=== PATIENT | male | born 1990 | race Two or more races ===

== ENCOUNTER 2016-10-17 13:25 | Emergency (ER) | payer SELFPAY ==
[~2016-10-17] VITALS: Ht 182.9 cm; Wt 95.3 kg
[2016-10-17] MEDS ORDERED: Morphine Sulfate 2mg/ml Inj IVP ONE (13:30)
[2016-10-17] MEDS ORDERED: Metoclopramide 10mg/2ml Inj IVP ONE (13:30)
[2016-10-17 13:33] VITALS: BP 150/100
[2016-10-17 13:52] LABS: BASOPHILS % (AUTO) 0.9 % (0.0-2.0); EOSINOPHILS % (AUTO) 0.4 % (0.0-3.0); LYMPHOCYTES % (AUTO) 23.6 % (20.0-45.0); MEAN CORPUSCULAR HEMOGLOBIN 27.9 PG (27.0-31.0); MEAN CORPUSCULAR HGB CONC 32.8 G/DL (32.0-36.0); MEAN CORPUSCULAR VOLUME 85 FL (80-99); MEAN PLATELET VOLUME 9.5 FL (6.5-10.1); MONOCYTES % (AUTO) 6.6 % (1.0-10.0); NEUTROPHILS % (AUTO) 68.4 % (45.0-75.0); PLATELET COUNT 362 K/UL (150-450); RED BLOOD COUNT 5.61 M/UL (4.70-6.10); RED CELL DISTRIBUTION WIDTH 11.7 % (11.6-14.8); WHITE BLOOD COUNT 13.4 K/UL (4.8-10.8)
--- NOTE | 2016-10-17 14:01 | Emergency Room Report ---
History of Present Illness General Chief Complaint: Nausea, Vomiting, and Diarrhea Source: Patient Present Illness HPI Patient presents with complaints of increased nausea vomiting Patient also having diffuse epigastric discomfort Reports symptoms ongoing for the past 2 days Denies any chest pain or shortness of breath Denies any diarrhea patient does admit to smoking marijuana Denies any other drugs Allergies: Coded Allergies: No Known Allergies (Unverified , 10/17/16) Patient History Past Medical History: see triage record Pertinent Family History: none Reviewed Nursing Documentation: PMH: Agreed, PSxH: Agreed Nursing Documentation-PMH Past Medical History: No Stated History Review of Systems All Other Systems: negative except mentioned in HPI Physical Exam Vital Signs Date Time Temp Pulse Resp B/P Pulse Ox O2 Delivery O2 Flow Rate FiO2 10/17/16 13:19 98.1 98 16 150/100 98 Room Air Sp02 EP Interpretation: reviewed, normal General Appearance: mild distress - Appears actively nauseated Head: normocephalic, atraumatic Eyes: bilateral eye EOMI, bilateral eye PERRL ENT: hearing grossly normal, normal pharynx, TMs + canals normal, uvula midline Neck: full range of motion, supple, no meningismus, no bony tend Respiratory: lungs clear, normal breath sounds, no rhonchi, no respiratory distress, no retraction, no accessory muscle use Cardiovascular #1: normal peripheral pulses, regular rate, rhythm, no edema, no gallop, no JVD, no murmur Gastrointestinal: normal bowel sounds, non tender, soft, no mass, no organomegaly, non-distended, no guarding, no hernia, no pulsatile mass, no rebound Genitourinary: no CVA tenderness Musculoskeletal: normal inspection Neurologic: oriented x3, responsive, cabinet installer III-XII nml as tested, motor strength/ tone normal, sensory intact Psychiatric: mood/affect normal Skin: normal color, no rash, warm/dry, palpation normal Lymphatic: normal inspection, no adenopathy Medical Decision Making Diagnostic Impression: Primary Impression: Abdominal pain Additional Impression: Vomiting ER Course With the history exam and presentation, multiple differentials considered, including but not limited to appendicitis, gastritis, cholecystitis, diverticulitis Patient's blood work reveals a mildly elevated white blood cell count CT imaging was normal after prolonged observation and hydration along with antiemetics patient does feel significantly better Given the lack of any obvious findings on the CAT scan imaging The patient's improvement we will have initial conservative outpatient trial I also spoke to the patient's brother and they will return with any changes Labs Test 10/17/16 13:30 10/17/16 15:09 White Blood Count 13.4 K/UL (4.8-10.8) Red Blood Count 5.61 M/UL (4.70-6.10) Hemoglobin 15.6 G/DL (14.2-18.0) Hematocrit 47.7 % (42.0-52.0) Mean Corpuscular Volume 85 FL (80-99) Mean Corpuscular Hemoglobin 27.9 PG (27.0-31.0) Mean Corpuscular Hemoglobin Concent 32.8 G/DL (32.0-36.0) Red Cell Distribution Width 11.7 % (11.6-14.8) Platelet Count 362 K/UL (150-450) Mean Platelet Volume 9.5 FL (6.5-10.1) Neutrophils (%) (Auto) 68.4 % (45.0-75.0) Lymphocytes (%) (Auto) 23.6 % (20.0-45.0) Monocytes (%) (Auto) 6.6 % (1.0-10.0) Eosinophils (%) (Auto) 0.4 % (0.0-3.0) Basophils (%) (Auto) 0.9 % (0.0-2.0) Sodium Level 138 mEQ/L (135-145) Potassium Level 3.3 mEQ/L (3.4-4.9) Chloride Level 92 mEQ/L (98-107) Carbon Dioxide Level 19 mEQ/L (20-30) Anion Gap 27 (5-15) Blood Urea Nitrogen 21 mg/dL (7-23) Creatinine 1.2 mg/dL (0.7-1.2) Estimat Glomerular Filtration Rate > 60 mL/min (>60) Glucose Level 131 mg/dL (74-106) Calcium Level 10.0 mg/dL (8.6-10.2) Total Bilirubin 0.8 mg/dL (0.0-1.2) Aspartate Amino Transf (AST/SGOT) 42 U/L (5-40) Alanine Aminotransferase (ALT/SGPT) 71 U/L (3-41) Alkaline Phosphatase 97 U/L (40-129) Total Protein 8.6 g/dL (6.6-8.7) Albumin 5.2 g/dL (3.5-5.2) Globulin 3.4 g/dL Albumin/Globulin Ratio 1.5 (1.0-2.7) Lipase 20 U/L (< 60) Urine Color Pale yellow Urine Appearance Clear Urine pH 6.5 (4.5-8.0) Urine Specific [place] 1.010 (1.005-1.035) Urine Protein 1+ (NEGATIVE) Urine Glucose (UA) Negative (NEGATIVE) Urine Ketones 1+ (NEGATIVE) Urine Occult Blood 2+ (NEGATIVE) Urine Nitrite Negative (NEGATIVE) Urine Bilirubin Negative (NEGATIVE) Urine Urobilinogen Normal MG/DL (0.0-1.0) Urine Leukocyte Esterase 1+ (NEGATIVE) Urine RBC 5-10 /HPF (0 - 0) Urine WBC 2-4 /HPF (0 - 0) Urine Squamous Epithelial Cells None /LPF (NONE/OCC) Urine Bacteria Few /HPF (NONE) Urine Opiates Screen Positive (NEGATIVE) Urine Barbiturates Screen Negative (NEGATIVE) Phencyclidine (PCP) Screen Negative (NEGATIVE) Urine Amphetamines Screen Negative (NEGATIVE) Urine Benzodiazepines Screen Negative (NEGATIVE) Urine Cocaine Screen Negative (NEGATIVE) Urine Marijuana (THC) Screen Positive (NEGATIVE) Rhythm Strip Diag. Results EP Interpretation: yes Rate: 77 Rhythm: NSR, no PVC's, no ectopy CT/MRI/US Diagnostic Results CT/MRI/US Diagnostic Results : Impression CT abdomen pelvisImpression: Mild fatty liver. Small hiatal hernia Calcification of the right adrenal gland. This may be posthemorrhagic or postinflammatory. Normal appendix Malrotated left kidney Hypoplastic spinal canal. If warranted clinically further evaluation with MRI may be of benefit on a non-urgent basis Last Vital Signs Date Time Temp Pulse Resp B/P Pulse Ox O2 Delivery O2 Flow Rate FiO2 10/17/16 13:33 16 150/100 98 Room Air 10/17/16 13:19 98.1 98 Status: improved Disposition: HOME, SELF-CARE Condition: Improved Scripts Famotidine (PEPCID) 40 Mg Tablet 40 MG PO DAILY, #7 TAB 0 Refills Prov: BRANDIE HENDRICKS D.O. 10/17/16 Ondansetron Odt* (ZOFRAN ODT*) 4 Mg Tab.rapdis 4 MG ORAL Q6H Y for Nausea & Vomiting, #20 TAB 0 Refills Prov: BRANDIE HENDRICKS D.O. 10/17/16 Additional Instructions: Patient is provided with the discharge instructions notified to follow up with primary doctor in the next 2-3 days otherwise return to the er with any worsening symptoms. Please note that this report is being documented using DRAGON technology. This can lead to erroneous entry secondary to incorrect interpretation by the dictating instrument. BRANDIE HENDRICKS D.O. Oct 17, 2016 14:01
[2016-10-17 14:05] LABS: ALANINE AMINOTRANSFERASE 71 U/L (3-41); ALBUMIN/GLOBULIN RATIO 1.5 (1.0-2.7); ANION GAP 27 (5-15); ASPARTATE AMINO TRANSFERASE 42 U/L (5-40); CARBON DIOXIDE 19 mEQ/L (20-30); CHLORIDE 92 mEQ/L (98-107); CREATININE 1.2 mg/dL (0.7-1.2); GLOMERULAR FILTRATION RATE > 60 mL/min (>60); HEMOLYSIS 8; LIPASE 20 U/L (< 60); POTASSIUM 3.3 mEQ/L (3.4-4.9); SODIUM 138 mEQ/L (135-145); TOTAL PROTEIN 8.6 g/dL (6.6-8.7)
[2016-10-17] MEDS ORDERED: LORazepam Inj 2mg/ml 1ml IV ONE (14:15)
[2016-10-17 15:28] VITALS: BP 150/98
[2016-10-17 16:05] LABS: APPEARANCE,URINE CLEAR; KETONES,URINE 1+ (NEGATIVE); LEUKOCYTE ESTERASE ,URINE 1+ (NEGATIVE); NITRITE,URINE NEGATIVE (NEGATIVE); PH,URINE 6.5 (4.5-8.0); PROTEIN,URINE 1+ (NEGATIVE); UROBILINOGEN,URINE NORMAL MG/DL (0.0-1.0)
[2016-10-17 16:21] LABS: BACTERIA,URINE FEW /HPF
[2016-10-17 17:45] VITALS: BP 136/75
[2016-10-17] MEDS ORDERED: ZOFRAN ODT4 MG ORAL (17:48)
[2016-10-17] MEDS ORDERED: PEPCID40 MG PO (17:48)
[2016-10-17 18:13] VITALS: BP 136/75
--- NOTE | 2016-10-18 08:26 | Diagnostic Imaging Report ---
Indication: Abdominal pain Technique: Continuous helical transaxial imaging of the abdomen and pelvis was obtained from the lung bases to the pubic symphysis during intravenous contrast administration. Coronal 2-D reformats were also obtained. Study obtained in a Siemens sensation [address] Total Dose length Product (DLP): [address] Dose Index Volume (CTDIvol): 19 mGy Comparison: None Findings: Liver attenuation is low consistent with fatty infiltration. There is a small hiatal hernia. The gallbladder is unremarkable. The spleen and pancreas are unremarkable. There is fairly dense calcification of a portion of the right adrenal gland, nonspecific finding. The appendix is normal. There is no hydronephrosis. Urinary bladder is unremarkable. No free fluid or free air identified within the abdomen or pelvis. Left kidney is slightly malrotated. 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 Impression: Mild fatty liver. Small hiatal hernia Calcification of the right adrenal gland. This may be posthemorrhagic or postinflammatory. Normal appendix Malrotated left kidney Hypoplastic spinal canal. If warranted clinically further evaluation with MRI may be of benefit on a non-urgent basis. The CT scanner at [facility] is accredited by the [employer] and the scans are performed using protocols designed to limit radiation exposure to as low as reasonably achievable to attain images of sufficient resolution adequate for diagnostic evaluation.
--- NOTE | 2016-10-22 08:32 | Cardiology Report ---
APPROVED REPORT EKG Measurement Heart [id number] NE [id number] Sinus rhythm with marked sinus arrhythmia Possible Left atrial enlargement Abnormal ECG
== END 2016-10-17 18:14 | disposition home or self-care (01) ==
LOC: EDBD 13:25 → EMR 17:00
DX: R11.10 Vomiting, unspecified (principal); R10.9 Unspecified abdominal pain
CPT/HCPCS: 36415; 74177; 80053; 80300; 81003; 83690; 85025; 93005; 96374; 96375; 99284; J2270; J2405; J2765; Q9967

== ENCOUNTER 2020-01-01 09:13 | Inpatient (IN) | payer MEDICAID ==
[~2020-01-01] VITALS: Ht 175.3 cm; Wt 123.4 kg
[~2020-01-01 09:13] MED LIST: PEPCID40 MG PO; ZOFRAN ODT4 MG ORAL
[2020-01-01 09:14] VITALS: BP 170/82
--- NOTE | 2020-01-01 09:14 | NUR ---
ED Nurse Note: Patient BIBLaisha RA68 from home c/o nausea/ vomiting x4 days. Pt also reports abdominal pain. Pt is retching and noted with undigested food emesis. AAOx4, verbally responsive. Not in any distress. Afebrile. Pt placed on sales and marketing representative.
[2020-01-01] MEDS ORDERED: DiphenhydrAMINE 50mg/ml Inj IVP ONE (09:15)
[2020-01-01] MEDS ORDERED: Metoclopramide 10mg/2ml Inj IVP ONE (09:15)
[2020-01-01] MEDS ORDERED: LORazepam Inj 2mg/ml 1ml IV ONE (09:15)
--- NOTE | 2020-01-01 09:20 | NUR ---
ED Nurse Note: IV line established. Blood specimen collected and sent to lab.
[2020-01-01 09:38] LABS: BASOPHILS % (AUTO) 0.8 % (0.0-2.0); EOSINOPHILS % (AUTO) 0.1 % (0.0-3.0); HEMATOCRIT 42.8 % (42.0-52.0); LYMPHOCYTES % (AUTO) 12.5 % (20.0-45.0); MEAN CORPUSCULAR VOLUME 80 FL (80-99); MONOCYTES % (AUTO) 5.3 % (1.0-10.0); NEUTROPHILS % (AUTO) 81.3 % (45.0-75.0); PLATELET COUNT 385 K/UL (150-450); RED BLOOD COUNT 5.34 M/UL (4.70-6.10); RED CELL DISTRIBUTION WIDTH 10.8 % (11.6-14.8); WHITE BLOOD COUNT 16.9 K/UL (4.8-10.8)
[2020-01-01 09:45] LABS: ANION GAP 18 mmol/L (5-15); BLOOD UREA NITROGEN 17 mg/dL (7-18); CALCIUM 9.3 MG/DL (8.5-10.1); CARBON DIOXIDE 19 MMOL/L (21-32); CHLORIDE 99 MMOL/L (98-107); CREATININE 1.5 MG/DL (0.55-1.30); SODIUM 136 MMOL/L (136-145)
[2020-01-01 09:49] LABS: ALANINE AMINOTRANSFERASE 191 U/L (12-78); ALBUMIN 4.6 G/DL (3.4-5.0); ALBUMIN/GLOBULIN RATIO 1.2 (1.0-2.7); ALKALINE PHOSPHATASE 85 U/L (46-116); ASPARTATE AMINO TRANSFERASE 82 U/L (15-37)
[2020-01-01 11:00] VITALS: BP 135/82
--- NOTE | 2020-01-01 11:36 | NUR ---
ED Nurse Note: Pt was taken to CT via misa, accompanied by a tech.
--- NOTE | 2020-01-01 11:48 | NUR ---
ED Nurse Note: Pt returned from CT, not in any distress.
--- NOTE | 2020-01-01 12:17 | Diagnostic Imaging Report ---
Indication: Nausea, vomiting, abdominal pain Technique: Spiral acquisitions obtained through the abdomen and pelvis. No oral contrast utilized, per emergency room physician request No IV contrast utilized, per referring physician request.. Multiplanar reconstructions were generated. Total dose length product 1027 mGycm. CTDIvol(s) 16 mGy. Dose reduction achieved using automated exposure control Comparison: None Findings: Lack of enteric contrast limits assessment of the GI tract. The appendix is normal. No small bowel distention. No free or loculated intraperitoneal gas or fluid. There is a small umbilical hernia. This contains only fat. The distal esophagus demonstrates mild wall thickening. The stomach is normal. The duodenum is unremarkable. Lack of IV contrast limits assessment of the solid organs. The liver is mildly hypoattenuating, consistent with mild fatty change. The gallbladder, bile ducts, pancreas, spleen, left adrenal are unremarkable. The right adrenal contains calcifications which appear dystrophic. There is slightly abnormal axis rotation of the left kidney. No gross renal parenchymal mass or cyst demonstrated. No renal or ureteral calculi, hydronephrosis, or hydroureter. The bladder is unremarkable. No pelvic mass or adenopathy. No retroperitoneal or mesenteric mass or adenopathy. There is incidental note of a retroaortic left renal vein. The included lung bases are clear. The bones are unremarkable. Impression: Limited assessment of the GI tract, due to lack of enteric contrast administration Mild distal esophageal wall thickening, could indicate esophagitis. Correlate with clinical finding No acute process otherwise Mild fatty liver Dystrophic right adrenal calcification, could indicate prior insult such as hemorrhage. Incidental findings as noted, including small umbilical hernia containing only fat, retroaortic left renal vein The CT scanner at [facility] is accredited by the [employer] and the scans are performed using protocols designed to limit radiation exposure to as low as reasonably achievable to attain images of sufficient resolution adequate for diagnostic evaluation.
[2020-01-01 13:00] VITALS: BP 125/68
[2020-01-01] MEDS ORDERED: Mylanta II UD 30ml ORAL ONE (13:00)
--- NOTE | 2020-01-01 13:10 | NUR ---
ED Nurse Note: Urine specimen collected and sent to lab.
--- NOTE | 2020-01-01 14:04 | Emergency Room Report ---
History of Present Illness General Chief Complaint: Nausea, Vomiting, and Diarrhea Source: Patient Present Illness HPI Patient presents with complaints of persistent nausea vomiting reports that he has been to several hospitals over the past 7 days this morning again began having increased nausea vomiting epigastric discomfort Denies any chest pain denies any back or flank pain patient reports that he has not used marijuana for the past 7 to 10 days As he was told that this might be contributing to his symptoms Denies any fevers denies any lower abdominal pain denies any recent travel patient had some similar presentation about 2 years ago Allergies: Coded Allergies: No Known Allergies (Unverified , 10/17/16) COVID-19 Screening Contact w/high risk pt: No Recent Travel to affected area: No Experienced COVID-19 symptoms?: No COVID-19 Testing performed CUE WORKER: No Patient History Past Medical History: see triage record Reviewed Nursing Documentation: PMH: Agreed; PSxH: Agreed Nursing Documentation-PM Past Medical History: No Stated History Review of Systems All Other Systems: negative except mentioned in HPI Physical Exam Vital Signs Date Time Temp Pulse Resp B/P (MAP) Pulse Ox O2 Delivery O2 Flow Rate FiO2 01/01/20 09:10 98.2 84 16 170/82 (111) 100 Room Air Sp02 EP Interpretation: reviewed, normal General Appearance: moderate distress - Aggressively actively vomiting Head: normocephalic, atraumatic Eyes: bilateral eye PERRL, bilateral eye EOMI ENT: hearing grossly normal, EOM grossly intact Neck: supple Respiratory: lungs clear, no respiratory distress, no retraction Cardiovascular #1: regular rate, rhythm Gastrointestinal: non tender - On palpation however points to epigastric and mid esophageal area for discomfort, no guarding, no hernia Genitourinary: no CVA tenderness Musculoskeletal: normal inspection Neurologic: alert, oriented x3 Psychiatric: normal inspection Lymphatic: no adenopathy Medical Decision Making Diagnostic Impression: Primary Impression: Vomiting Additional Impression: Abdominal pain ER Course With the history exam and presentation, multiple differentials considered, including but not limited to appendicitis, gastritis, cholecystitis, diverticulitis Patient had aggressive IV hydration antiemetics initiated on repeat evaluation continues with discomfort and therefore CT imaging was obtained Some evidence of esophageal irritation otherwise nothing in the lower abdominal region That was acute Patient however remained persistently nauseated And vomiting and not able to tolerate oral intake and will require further inpatient care Labs Test 01/01/20 09:21 01/01/20 12:56 White Blood Count 16.9 K/UL (4.8-10.8) Red Blood Count 5.34 M/UL (4.70-6.10) Hemoglobin 15.0 G/DL (14.2-18.0) Hematocrit 42.8 % (42.0-52.0) Mean Corpuscular Volume 80 FL (80-99) Mean Corpuscular Hemoglobin 28.1 PG (27.0-31.0) Mean Corpuscular Hemoglobin Concent 35.1 G/DL (32.0-36.0) Red Cell Distribution Width 10.8 % (11.6-14.8) Platelet Count 385 K/UL (150-450) Mean Platelet Volume 7.3 FL (6.5-10.1) Neutrophils (%) (Auto) 81.3 % (45.0-75.0) Lymphocytes (%) (Auto) 12.5 % (20.0-45.0) Monocytes (%) (Auto) 5.3 % (1.0-10.0) Eosinophils (%) (Auto) 0.1 % (0.0-3.0) Basophils (%) (Auto) 0.8 % (0.0-2.0) Sodium Level 136 MMOL/L (136-145) Potassium Level 3.0 MMOL/L (3.5-5.1) Chloride Level 99 MMOL/L (98-107) Carbon Dioxide Level 19 MMOL/L (21-32) Anion Gap 18 mmol/L (5-15) Blood Urea Nitrogen 17 mg/dL (7-18) Creatinine 1.5 MG/DL (0.55-1.30) Estimat Glomerular Filtration Rate 56.1 mL/min (>60) Glucose Level 128 MG/DL (74-106) Calcium Level 9.3 MG/DL (8.5-10.1) Total Bilirubin 1.0 MG/DL (0.2-1.0) Aspartate Amino Transf (AST/SGOT) 82 U/L (15-37) Alanine Aminotransferase (ALT/SGPT) 191 U/L (12-78) Alkaline Phosphatase 85 U/L (46-116) Total Protein 8.3 G/DL (6.4-8.2) Albumin 4.6 G/DL (3.4-5.0) Globulin 3.7 g/dL Albumin/Globulin Ratio 1.2 (1.0-2.7) Lipase 106 U/L (73-393) CT/MRI/US Diagnostic Results CT/MRI/US Diagnostic Results : Impression CT abdomen pelvisImpression: Limited assessment of the GI tract, due to lack of enteric contrast administration Mild distal esophageal wall thickening, could indicate esophagitis. Correlate with clinical finding No acute process otherwise Mild fatty liver Dystrophic right adrenal calcification, could indicate prior insult such as hemorrhage. Incidental findings as noted, including small umbilical hernia containing only fat, retroaortic left renal vein Last Vital Signs Date Time Temp Pulse Resp B/P (MAP) Pulse Ox O2 Delivery O2 Flow Rate FiO2 01/01/20 11:00 98.2 85 23 135/82 97 Room Air Status: improved Disposition: ADMITTED INPATIENT Condition: Serious Scripts No Active Prescriptions or Reported Meds Referrals: NOT CHOSEN IPA/,REFERRING (PCP) Kal Smiht DO Jan 01, 2020 14:03
[2020-01-01 15:00] VITALS: BP 118/71
--- NOTE | 2020-01-01 15:57 | NUR ---
ED Nurse Note: Report given to Elina PRICE.
--- NOTE | 2020-01-01 16:05 | NUR ---
TRANSFER TO FLOOR: Patient transferred to [facility] [place]. Report given to Elina PRICE. Pt AAOx4, verbally responsive. Not in any distress. Ambulatory. IV line on right AC 20g patent and intact. No skin issues. Med recon done. All belongings sent with the patient.
--- NOTE | 2020-01-01 16:20 | NUR ---
nurse notes received patient from ED via wheelchair patient awake, alert, oriented x4, no sign of distress, HL patent on right AC, c/o abdominal pain, but denies nausea and vomiting, Admission routine care ,oriented to the unit, plan of care was discharge verbalized understanding, call light w/n reach, will continue to monitor patient condition portillo fitzpatrick
[2020-01-01 16:44] VITALS: BP 130/73
[2020-01-01] MEDS: Pantoprazole Inj IVP SCH (18:16)
[2020-01-01] MEDS: NS w/KCl 20mEq 1000ml 1,000 ML IV SCH (18:18)
--- NOTE | 2020-01-01 19:20 | NUR ---
NURSE NOTES: Received patient on bed, awake and verbally responsive. room air. no sob. denies any pain or discomfort. with iv line on the right ac running ns + kcl 20 meq at 150ml/hr. patent and intact. no complaints of nausea and vomiting at the moment. reiterated to call and ask for help by using the call light. call light and light button within easy reach. bed locked and in lowest position. will continue plan of care.
--- NOTE | 2020-01-01 19:29 | NUR ---
HAND-OFF: Report given to Ms Harper patient resting comfortably in bed, portillo fitzpatrick.
[2020-01-01 20:00] VITALS: BP 125/75
[2020-01-02] VITALS: BP 134/78
[2020-01-02] MEDS: NS w/KCl 20mEq 1000ml 1,000 ML IV SCH ×4 (00:40→22:00)
--- NOTE | 2020-01-02 02:30 | History and Physical Report ---
DATE OF ADMISSION: 01/01/2020 REASON FOR ADMISSION: Refractory vomiting. HISTORY OF PRESENT ILLNESS: This is a 29-year-old male with no significant prior medical history, who presented to the emergency room complaining of persisting nausea and vomiting intermittently over the past week. He has some mild epigastric discomfort, but no other constitutional symptoms including fevers, diarrhea, or bleeding. While the patient does use marijuana, he stopped it about a week ago because he thought it may be contributing to his symptoms. He noted no change. PAST MEDICAL HISTORY: Unremarkable. ALLERGIES: None known. MEDICATIONS: None. SOCIAL HISTORY: Denies smoking, alcohol, or substance abuse. FAMILY HISTORY: Noncontributory. REVIEW OF SYSTEMS: A 10-point review of systems performed. All systems negative. PHYSICAL EXAMINATION: VITAL SIGNS: Afebrile, blood pressure 125/68, heart rate 78, respirations 19, afebrile. HEENT: Conjunctivae pink. Oropharynx clear. NECK: Supple. LUNGS: Clear. CARDIAC: Regular. Normal S1, S2. ABDOMEN: Soft, nontender. No focal guarding or rebound. EXTREMITIES: No edema. NEUROLOGIC: Symmetric strength. No asterixis. No ataxia. Normal finger-nose exam. LABORATORY DATA: White count 17, hemoglobin 15. Sodium 136, potassium 3, bicarb 19, BUN 17, creatinine 1.5. Liver function elevated with AST of 82 and ALT 191. Alkaline phosphatase normal. Albumin 4.6. Lipase 106. IMPRESSION: 1. Nausea and vomiting. 2. Hypokalemia. 3. Metabolic acidosis. 4. Elevated creatinine, likely due to hypovolemia. 5. Transaminitis, may reflect acute viral infection. PLAN: 1. Hydration. 2. Potassium repletion. 3. Check magnesium. 4. Follow up lab studies. 5. Hepatitis serologies. 6. Proton-pump inhibitor. 7. Antiemetics. 8. Hold antibiotics for now. 9. Consideration for further diagnostic studies to follow. Ivana Walker JOB#: [id number] CC:
[2020-01-02 04:00] VITALS: BP 133/70
--- NOTE | 2020-01-02 07:19 | NUR ---
HAND-OFF: Report given to DEE CLOUD.Patient is on bed, stable condition. not in any form of respiratory distress. plan of care endorsed.
--- NOTE | 2020-01-02 07:20 | NUR ---
NURSE NOTES: Received patient in bed, asleep @ this time. Breathing is even and unlabored. IVF is running. Bed is in lowest position and locked. Call light within reach.Will continue plan of care.
--- NOTE | 2020-01-02 07:50 | NUR ---
NURSE NOTES: Patient is awake, not in respiratory/cardiac distress. Complains of mild abdominal pain and nausea. Patient hasn't started breakfast. Given zofran IV as ordered and paged Dr. Flowers for pain meds, no PRN meds for patient. Abdomen is soft. no episodes of vomiting. WIll continue to monitor.
[2020-01-02 08:00] VITALS: BP 145/82
[2020-01-02 09:02] LABS: ALANINE AMINOTRANSFERASE 157 U/L (12-78); ALBUMIN 3.8 G/DL (3.4-5.0); ALKALINE PHOSPHATASE 69 U/L (46-116); ANION GAP 10 mmol/L (5-15); ASPARTATE AMINO TRANSFERASE 57 U/L (15-37); BILIRUBIN,DIRECT 0.2 MG/DL (0.0-0.3); BLOOD UREA NITROGEN 9 mg/dL (7-18); CALCIUM 8.3 MG/DL (8.5-10.1); CARBON DIOXIDE 24 MMOL/L (21-32); CHLORIDE 105 MMOL/L (98-107); CREATININE 1.1 MG/DL (0.55-1.30); POTASSIUM 3.4 MMOL/L (3.5-5.1); SODIUM 139 MMOL/L (136-145)
[2020-01-02 09:10] LABS: BASOPHILS % (AUTO) 0.7 % (0.0-2.0); EOSINOPHILS % (AUTO) 0.3 % (0.0-3.0); HEMATOCRIT 38.8 % (42.0-52.0); HEMOGLOBIN 13.6 G/DL (14.2-18.0); LYMPHOCYTES % (AUTO) 25.9 % (20.0-45.0); MEAN CORPUSCULAR VOLUME 82 FL (80-99); MONOCYTES % (AUTO) 8.2 % (1.0-10.0); NEUTROPHILS % (AUTO) 64.9 % (45.0-75.0); PLATELET COUNT 287 K/UL (150-450); RED BLOOD COUNT 4.76 M/UL (4.70-6.10); RED CELL DISTRIBUTION WIDTH 10.9 % (11.6-14.8); WHITE BLOOD COUNT 9.7 K/UL (4.8-10.8)
[2020-01-02] MEDS: Pantoprazole Inj IVP SCH (09:11)
--- NOTE | 2020-01-02 09:20 | NUR ---
NURSE NOTES: Received tylenol PRN order from Dr. Cody and administered. Patient passes as and had bowel movement. Patient is not nauseous anymore and informed Rn that he had loose bowel movement early in the morning. Instructed patient to call Rn if he moves bowel movement so RN can check. Placed a hat in the toilet. Abdomen is soft to touch. Louis continue to monitor.
--- NOTE | 2020-01-02 11:34 | NUR ---
NURSE NOTES: Patient's potassium is 3.4 today with NS with 20MEQ KCL @ 150cc/hr. Potassium was 3.0 yesterday. RN spoke to Dr. Cody and received new order to give K-dur 20MEQ po x1. Read back and carried out.
--- NOTE | 2020-01-02 11:50 | NUR ---
HAND-OFF: Report given to Elina RN and endorsed to plan of care.
--- NOTE | 2020-01-02 11:51 | NUR ---
nurse notes received patient resting comfortably in bed, no sign of distress, on going IVF , IV site patent and infusing well, denies pain or discomfort at this time, will continue to monitor patient condition portillo fitzpatrick
[2020-01-02 12:00] VITALS: BP 139/78
--- NOTE | 2020-01-02 13:12 | NUR ---
NURSE NOTES: MD Cody made aware of COVID swab ersults. Stated he has not seen the patient but would let MD Flowers assess whether the patient needs isolations precautions still.
[2020-01-02 16:00] VITALS: BP 126/78
--- NOTE | 2020-01-02 16:06 | NUR ---
CASE MANAGEMENT:INITIAL REVIEW 29 YR OLD MALE BIBA FROM HOME CC;NAUSEA. VOMITING. DIARRHEA. SI;PERSISTENT VOMITING. HYPOKALEMIA. 98.2 85 23 170/82 97% ON RA WBC 16.9 K+ 3.0 CR 1.7 AST 82 ALT 191 TOX+ THC HEP PANEL ~ RESULTS PENDING ABD/PELVIS CT ~ Mild distal esophageal wall thickening, could indicate esophagitis. COVID-19 PCR ~ NOT DETECTED IS;REGLAN IV ONCE IVF NS BOLUS BENADRYL IV ONCE ATIVAN IV ONCE PEPCID IV ONCE MOM PO ONCE ADMITTED TO MED SURG MED SURG STATUS DCP;FROM HOME
--- NOTE | 2020-01-02 19:35 | NUR ---
HAND-OFF: Report given to Ms Pardeep fitzpatrick rn.
--- NOTE | 2020-01-02 19:37 | NUR ---
NURSE NOTES: Patient in bed, awake and alert x4. On room air with no signs of distress or SOB. IV intact and running IVF as ordered. Bed locked and in lowest position. Call light in reach. Will continue to follow plan of care.
--- NOTE | 2020-01-02 19:48 | NUR ---
NURSE NOTES: Patient C/O nausea. No vomiting. Administered Zofran as ordered. Will continue to monitor.
[2020-01-02 20:00] VITALS: BP 135/86
[2020-01-03] VITALS: BP 131/77
--- NOTE | 2020-01-03 00:30 | Progress Note ---
DATE: 01/02/2020 INTERNAL MEDICINE PROGRESS NOTE SUBJECTIVE: The patient has no headache. He has mild nausea, but no vomiting. He has tolerated liquid diet. Vitals are stable. Afebrile. White count down to 9.7 with no therapy. OBJECTIVE: LUNGS: Clear. CARDIAC: Regular. ABDOMEN: Soft, nontender. No guarding or rebound. EXTREMITIES: No edema. NEUROLOGIC: Nonfocal. LABORATORY DATA: White count 9.7, hemoglobin 13.6. Potassium 3.4. Lactic acid normal. BUN 9, creatinine 1.1. AST and ALT are slightly better at 57 and 157. Hepatitis serologies pending. Magnesium 2.4. IMPRESSION: 1. Nausea and vomiting, improved. 2. Probable viral gastroenteritis syndrome, clinically better. 3. Leukocytosis, resolved. 4. Hypokalemia, improved. 5. Transaminitis, likely related to acute viral syndrome. PLAN: 1. Advance diet. 2. Continue hydration and potassium replacement. 3. Follow up liver function tests and hepatitis serologies. 4. Discharge planning if symptoms continue to improve. Ivana Walker JOB#: [id number] CC:
[2020-01-03 04:00] VITALS: BP 140/82
[2020-01-03] MEDS: NS w/KCl 20mEq 1000ml 1,000 ML IV SCH ×2 (04:41→10:30)
--- NOTE | 2020-01-03 07:26 | NUR ---
HAND-OFF: Report given to DEE Antoine.
[2020-01-03 07:49] LABS: EOSINOPHILS % (AUTO) 0.6 % (0.0-3.0); HEMATOCRIT 41.4 % (42.0-52.0); HEMOGLOBIN 14.5 G/DL (14.2-18.0); LYMPHOCYTES % (AUTO) 28.7 % (20.0-45.0); MEAN CORPUSCULAR VOLUME 81 FL (80-99); MONOCYTES % (AUTO) 5.6 % (1.0-10.0); NEUTROPHILS % (AUTO) 64.1 % (45.0-75.0); PLATELET COUNT 317 K/UL (150-450); RED BLOOD COUNT 5.08 M/UL (4.70-6.10); RED CELL DISTRIBUTION WIDTH 11.2 % (11.6-14.8); WHITE BLOOD COUNT 8.9 K/UL (4.8-10.8)
[2020-01-03 08:00] VITALS: BP 138/78
--- NOTE | 2020-01-03 08:01 | NUR ---
NURSE NOTES: received patient sitting on the edge of the bed, patient awake ,alert and orieted x4. no sign of distress,On room air , on going IVF intact and running. on fall precaution,Bed locked and in lowest position. Call light in reach. Will continue to follow plan of care. portillo fitzpatrick
[2020-01-03 08:17] LABS: ALANINE AMINOTRANSFERASE 156 U/L (12-78); ALKALINE PHOSPHATASE 72 U/L (46-116); ANION GAP 11 mmol/L (5-15); ASPARTATE AMINO TRANSFERASE 61 U/L (15-37); BILIRUBIN,DIRECT 0.2 MG/DL (0.0-0.3); BILIRUBIN,TOTAL 0.8 MG/DL (0.2-1.0); BLOOD UREA NITROGEN 9 mg/dL (7-18); CARBON DIOXIDE 24 MMOL/L (21-32); CHLORIDE 106 MMOL/L (98-107); CREATININE 1.1 MG/DL (0.55-1.30); POTASSIUM 4.2 MMOL/L (3.5-5.1); SODIUM 140 MMOL/L (136-145)
[2020-01-03 12:10] VITALS: BP 132/74
--- NOTE | 2020-01-03 14:25 | NUR ---
nurse notes seen by PMD Dr COHEN with order noted and carried out portillo fitzpatrick
--- NOTE | 2020-01-03 15:51 | NUR ---
nurse notes discharge to home obtained, patient made aware regarding plan of care, patient self responsible, discharge instruction packet handed to patient discharge teaching done all questions answered verbalized understanding portillo fitzpatrick
[2020-01-03 16:04] VITALS: BP 129/69
--- NOTE | 2020-01-03 16:47 | NUR ---
nurse notes discharged in stable condition with all belongings taken accompanied to the lobby, discharged via private car portillo fitzpatrick
--- NOTE | 2020-01-04 16:18 | Discharge Summary ---
Discharge Summary Discharge Summary _ DATE OF ADMISSION: 01/01/2020 DATE OF DISCHARGE: 01/03/2020 DISCHARGED BY: REASON FOR ADMISSION: 29 years old male with no significant past medical history, presented to emergency department complaining of persistent nausea and intermittent vomiting over the past week. Patient reported mild epigastric discomfort. No fever or chills. No diarrhea. No bleeding. Patient admitted to use of marijuana, however he stopped using it about a week ago , thinking that it may contribute to his symptoms. He noted no change. Upon evaluation laboratory work-up revealed leukocytosis WBC 16.9, stable hemoglobin , hematocrit and platelet count. Potassium 3.0. Anion gap elevated 18. BUN 17, creatinine 1.5. Glucose 128. AST 82 , ALT 191, lipase 106. CT of the abdomen and pelvis revealed mild distal esophageal wall thickening , possibly esophagitis. No acute process otherwise. Mild fatty liver. Urine toxicology screen was positive for marijuana. In emergency department patient received 1 L of fluid, antiemetic, Pepcid and admitted for further management . HOSPITAL COURSE: Patient admitted to medical surgical floor. Patient started on the IV fluids . Potassium was replaced. Magnesium was stable. Patient started on PPI. Antiemetic were on board as needed. Antibiotics held , since no evidence of infectious etiology. Renal parameters and electrolytes were closely monitored. With IV hydration creatinine from 1.5 down to 1.1. Potassium stabilized and prior to discharge 4.2. AST trended from 82 down to 61 , and ALT from 191 down to 156 . Hepatitis serology still pending at the time of this dictation. Leukocytosis resolved the next day. No fevers. Leukocytosis most likely was reactive. Nausea and vomiting improved significantly. Patient slowly started on diet and was able to tolerate it . Transaminitis possibly related to acute viral syndrome. Patient likely had episode of viral gastroenteritis . Patient clinically stabilized and was ready for discharge FINAL DIAGNOSES: Nausea and vomiting- improved Probable viral gastroenteritis Leukocytosis -resolved, likely reactive Hypokalemia -resolved Transaminitis, likely related to acute viral syndrome DISCHARGE MEDICATIONS: See Medication Reconciliation list. DISCHARGE INSTRUCTIONS: She was discharged home. Follow-up with a primary care provider in 2 weeks. I have been assigned to dictate discharge summary for this account. I was not involved in the patient's management. Marah Mejía NP Jan 04, 2020 16:18
== END 2020-01-03 16:50 | disposition home or self-care (01) | DRG 249 ==
LOC: EDBD 09:13 → EMR 09:40 → 4E 14:09 → EDBEDREQ 14:49
DX: A08.4 Viral intestinal infection, unspecified (principal); E87.6 Hypokalemia; E87.2 Acidosis; E86.1 Hypovolemia
CPT/HCPCS: 36415; 74176; 80048; 80053; 80076; 80307; 82977; 83605; 83690; 83735; 85025; 86709; 86803; 87340; 87517; 96361; 96374; 96375; 99285; J2405; J2765; J7030; J8499

== ENCOUNTER 2020-07-12 21:52 | Emergency (ER) | payer MEDICAID ==
[~2020-07-12] VITALS: Ht 182.9 cm; Wt 122.5 kg
--- NOTE | 2020-07-12 22:05 | NUR ---
ED Nurse Note: Patient walked into ED from home for c/o abdominal pain with N/V since last night. He states pain is burning in nature, nonradiating. Unable to keep food or liquids down. He denies eating any abnormal food, but states same problem has happened in the past and was told it was food poisioning. He is aaox4, breathing is normal. Patient ambulatory with steady gait.
[2020-07-12 22:07] VITALS: BP 159/99
[2020-07-12] MEDS ORDERED: HYDROmorphone 1mg/ml Carpuject IVP ONE (22:15)
--- NOTE | 2020-07-12 22:19 | Emergency Room Report ---
History of Present Illness General Chief Complaint: Nausea, Vomiting, and Diarrhea Source: Patient Present Illness HPI Is a 29-year-old male with no past medical history. He presents with chief plaint abdominal pain with nausea and vomiting. Onset for last couple days. Unable to keep anything down. Pain is crampy in nature. 8 out of 10. Vomiting is nonbloody nonbilious. No fever chills but no trauma. This is a frequent occurrence for him. He has been here several times already this year for it. He has been to his of the hospital for it. Nothing made it better. Nothing made it worse. He does smoke marijuana. Allergies: Coded Allergies: No Known Allergies (Unverified , 10/17/16) COVID-19 Screening Contact w/high risk pt: No Recent Travel to affected area: No Experienced COVID-19 symptoms?: No COVID-19 Testing performed BUSINESS CASE ANALYST: No Patient History Past Medical History: see triage record, old chart reviewed Past Surgical History: none Pertinent Family History: none Social History: Denies: smoking Immunizations: other Reviewed Nursing Documentation: PMH: Agreed; PSxH: Agreed Nursing Documentation-PMH Hx Hypertension: Yes Review of Systems Eye: Denies: eye pain, blurred vision ENT: Denies: ear pain, nose congestion, throat swelling Respiratory: Denies: cough, shortness of breath Cardiovascular: Denies: chest pain, palpitations Gastrointestinal: Reports: abdominal pain, nausea, vomiting; Denies: diarrhea Musculoskeletal: Denies: back pain, joint pain Skin: Denies: rash Neurological: Denies: headache, numbness Endocrine: Denies: increased thirst, increased urine Hematologic/Lymphatic: Denies: easy bruising All Other Systems: negative except mentioned in HPI Physical Exam Vital Signs Date Time Temp Pulse Resp B/P (MAP) Pulse Ox O2 Delivery O2 Flow Rate FiO2 07/12/20 21:59 98.2 100 21 159/99 (119) 97 Room Air Vitals with high blood pressure Sp02 EP Interpretation: reviewed, normal General Appearance: well appearing, no apparent distress, alert Head: normocephalic, atraumatic Eyes: bilateral eye EOMI ENT: hearing grossly normal, normal pharynx Neck: full range of motion, supple, no meningismus Respiratory: chest non-tender, lungs clear, normal breath sounds Cardiovascular #1: regular rate, rhythm, no murmur Gastrointestinal: non tender, no mass, no organomegaly, no bruit, non- distended, decreased bowel sounds Musculoskeletal: back normal, normal range of motion, gait/station normal Psychiatric: mood/affect normal Medical Decision Making Diagnostic Impression: Primary Impression: Cyclic vomiting syndrome Additional Impression: UTI (urinary tract infection) Qualified Codes: N30.00 - Acute cystitis without hematuria ER Course This patient presents with abdominal pain with persistent vomiting. He probably has cyclic vomiting syndrome that caused by or exacerbated by his marijuana use. He felt better now. I did a CT scan because he had a leukocytosis of 18,000. CT was negative. No evidence of an acute abdomen. Will discharge home. CT/MRI/US Diagnostic Results CT/MRI/US Diagnostic Results : Imaging Test Ordered: CT abdomen and pelvis Impression Negative other than fatty liver per radiologist Last Vital Signs Date Time Temp Pulse Resp B/P (MAP) Pulse Ox O2 Delivery O2 Flow Rate FiO2 07/12/20 22:07 98.2 100 21 159/99 97 Room Air Status: improved Disposition: HOME, SELF-CARE Condition: Stable Scripts Doxycycline Monohydrate* (DOXYCYCLINE MONOHYDRATE*) 100 Mg Capsule 100 MG ORAL Q12H, #14 CAP 0 Refills Prov: Osmin Pak MD 07/13/20 Ondansetron (Zofran) 4 Mg Tablet 4 MG ORAL Q6H PRN for Nausea & Vomiting, #15 TAB 0 Refills Prov: Osmin Pak MD 07/13/20 Referrals: [facility]LETON,REFERRING (PCP) Additional Instructions: Follow-up with your doctor in 7 days. Stop using marijuana. This may be the cause or exacerbate your cyclic vomiting syndrome. Return if symptoms worsen. Osmin Pak MD Jul 12, 2020 22:19
[2020-07-12 22:28] LABS: HEMATOCRIT 44.6 % (42.0-52.0); HEMOGLOBIN 15.8 G/DL (14.2-18.0); MEAN CORPUSCULAR VOLUME 81 FL (80-99); PLATELET COUNT 311 K/UL (150-450); RED BLOOD COUNT 5.53 M/UL (4.70-6.10); WHITE BLOOD COUNT 18.3 K/UL (4.8-10.8)
[2020-07-12 22:29] LABS: BASOPHILS % (AUTO) 0.3 % (0.0-2.0); MONOCYTES % (AUTO) 3.5 % (1.0-10.0); NEUTROPHILS % (AUTO) 89.3 % (45.0-75.0)
[2020-07-12 22:46] LABS: ANION GAP 15 mmol/L (5-15); BLOOD UREA NITROGEN 15 mg/dL (7-18); CALCIUM 9.5 MG/DL (8.5-10.1); CARBON DIOXIDE 22 MMOL/L (21-32); CHLORIDE 100 MMOL/L (98-107); CREATININE 1.4 MG/DL (0.55-1.30); POTASSIUM 3.5 MMOL/L (3.5-5.1); SODIUM 137 MMOL/L (136-145)
[2020-07-12 22:50] LABS: ALANINE AMINOTRANSFERASE 141 U/L (12-78); ALBUMIN 4.6 G/DL (3.4-5.0); ALKALINE PHOSPHATASE 94 U/L (46-116); ASPARTATE AMINO TRANSFERASE 45 U/L (15-37); BILIRUBIN,TOTAL 0.5 MG/DL (0.2-1.0)
--- NOTE | 2020-07-12 23:50 | NUR ---
ED Nurse Note: Patient ambulated to restroom with steady gait. No signs of severe pain at this time. Urine sample collected and sent to lab.
--- NOTE | 2020-07-12 23:57 | Diagnostic Imaging Report ---
EXAM: CT Abdomen and Pelvis Without Intravenous Contrast CLINICAL HISTORY: ABD PAIN TECHNIQUE: Axial computed tomography images of the abdomen and pelvis without intravenous contrast. CTDI is 14.00 mGy and DLP is 975.50 mGy-cm. One or more of the following dose reduction techniques were used: automated exposure control, adjustment of the mA and/or kV according to patient size, use of iterative reconstruction technique. COMPARISON: CT abdomen/pelvis on 10/17/2016 FINDINGS: Lung bases: Mild dependent atelectasis bilaterally. ABDOMEN: Liver: Hepatic steatosis. Gallbladder and bile ducts: Unremarkable. No calcified stones. No ductal dilation. Pancreas: Unremarkable. No ductal dilation. Spleen: Unremarkable. No splenomegaly. Adrenals: Stable calcifications in the right adrenal gland. Kidneys and ureters: No hydronephrosis or stone. Retroaortic left renal vein. Stomach and bowel: Evaluation of the stomach is limited by underdistention. No mucosal thickening. PELVIS: Appendix: Normal appendix. Bladder: Unremarkable. No stones. Reproductive: Unremarkable as visualized. ABDOMEN and PELVIS: Intraperitoneal space: Unremarkable. No free air. No significant fluid collection. Bones/joints: No acute fracture. No dislocation. Soft tissues: Fat-containing umbilical hernia. Vasculature: See above. Lymph nodes: Unremarkable. No enlarged lymph nodes. Other findings: Partial lumbosacral transitional anatomy. IMPRESSION: Hepatic steatosis. No acute abnormality in the abdomen or pelvis.
[2020-07-13 00:07] LABS: APPEARANCE,URINE CLEAR; BILIRUBIN, URINE NEGATIVE (NEGATIVE); GLUCOSE, URINE (UA) NEGATIVE (NEGATIVE); KETONES,URINE 2+ (NEGATIVE); LEUKOCYTE ESTERASE ,URINE 1+ (NEGATIVE); NITRITE,URINE NEGATIVE (NEGATIVE); PH,URINE 5 (4.5-8.0); PROTEIN,URINE 3+ (NEGATIVE); UROBILINOGEN,URINE NORMAL MG/DL (0.0-1.0)
[2020-07-13 00:13] LABS: COLOR,URINE YELLOW
[2020-07-13] MEDS ORDERED: ZOFRAN4 MG ORAL (00:20)
[2020-07-13] MEDS ORDERED: DOXYCYCLINE MO100 MG ORAL (00:20)
[2020-07-13] MEDS ORDERED: cefTRIAXone 1 GM in NS 55 ML IVPB ONE (00:30)
[2020-07-13 00:40] VITALS: BP 135/85
--- NOTE | 2020-07-13 00:40 | NUR ---
ER DISCHARGE NOTE: Patient is cleared to be discharged per ERMD, pt is aox4, on room air, with stable vital signs. pt was given dc and prescription instructions, pt was able to verbalize understanding, pt id band and iv site removed without complications. pt is able to ambulate with steady gait. pt took all belongings.
== END 2020-07-13 00:40 | disposition home or self-care (01) ==
LOC: EMR 22:16
DX: R11.15 Cyclical vomiting syndrome unrelated to migraine (principal); N30.00 Acute cystitis without hematuria; I10 Essential (primary) hypertension; F12.90 Cannabis use, unspecified, uncomplicated
CPT/HCPCS: 36415; 74176; 80053; 81003; 83690; 85025; 87086; 96361; 96365; 96375; J0696; J1170; J2405; J7030; Z7502; 99284

== ENCOUNTER 2020-08-05 10:28 | Emergency (ER) | payer MEDICAID ==
[~2020-08-05] VITALS: Ht 182.9 cm; Wt 131.5 kg
[~2020-08-05 10:28] MED LIST changes: +DOXYCYCLINE MO100 MG ORAL; +ZOFRAN4 MG ORAL
[2020-08-05 10:45] VITALS: BP 157/100
--- NOTE | 2020-08-05 10:45 | NUR ---
ED Nurse Note: pt presents to ED c/o abd pain, N/V x 2 days. he denies any hematemesis at this time, denies diarrhea or urinary symptoms.
--- NOTE | 2020-08-05 11:08 | Emergency Room Report ---
History of Present Illness General Chief Complaint: Abdominal Pain Source: Patient Present Illness HPI Disclaimer: Please note that this report is being documented using [employer] technology. This can lead to erroneous entry secondary to incorrect interpretation by the dictating instrument. HPI: 29-year-old male history of chronic gastritis and cyclic vomiting syndrome presents for evaluation of vomiting. Symptoms present 2 days. Cannot remember what he ate prior to symptom onset. Reports persistent vomiting and nausea. Denies diarrhea. Denies fever or chills. Has not taken any medication prior to arrival. Denies history of abdominal surgery. Denies abdominal trauma. Denies melena or hematochezia. Nothing makes it better, nothing makes it worse. PMH: Gastritis/cyclic vomiting, hypertension PSH: Denied Allergies: Denied Social Hx: Quit THC 1 month ago Allergies: Coded Allergies: No Known Allergies (Unverified , 10/17/16) COVID-19 Screening Contact w/high risk pt: No Recent Travel to affected area: No Experienced COVID-19 symptoms?: No COVID-19 Testing performed PHOTOLITH OPERATOR: No Nursing Documentation-PMH Past Medical History: No History, Except For Hx Hypertension: Yes Review of Systems All Other Systems: negative except mentioned in HPI Physical Exam Vital Signs Date Time Temp Pulse Resp B/P (MAP) Pulse Ox O2 Delivery O2 Flow Rate FiO2 08/05/20 10:41 96.6 78 19 157/100 (119) 98 Room Air General: Awake and alert, vomiting HEENT: NC/AT. EOMI. Cardiovascular: RRR. S1 and S2 normal. No murmur appreciated Resp: Normal work of breathing. No cough, wheezing or crackles appreciated Abdomen: Abdomen is soft, nondistended. Obese abdomen. Tender palpation in the epigastrium. No guarding. No rebound. Negative Nguyen's. No palpable hernia. Skin: Intact. No abrasions, laceration or rash over the exposed skin MSK: Normal tone and bulk. Moving all extremities. No obvious deformity. Neuro: Awake and alert. Mentating appropriately. Medical Decision Making Diagnostic Impression: Primary Impression: Vomiting ER Course 29-year-old male presents for evaluation of vomiting. Differential includes was not limited to gastritis, gastroenteritis, pancreatitis, cholecystitis, cyclic vomiting syndrome, gastroenteritis, nephrolithiasis, UTI. CT scan on last visit of 07/12/2020 was unremarkable aside from hepatic steatosis. Slight elevation of white count at 16 with neutrophil predominance. This may be stress reaction. Patient is afebrile. Chemistry shows chronically elevated LFTs unchanged from previous visits. Renal function within normal limits. Tox being positive for marijuana as on prior visits. No evidence of acute urinary tract infection. Patient resting comfortably after receiving medication. No further emesis in ED. Stable for discharge and outpatient follow-up. Will refer again to gastroenterology. Laboratory Tests Test 08/05/20 11:00 White Blood Count 16.1 K/UL (4.8-10.8) H Red Blood Count 5.32 M/UL (4.70-6.10) Hemoglobin 15.5 G/DL (14.2-18.0) Hematocrit 47.1 % (42.0-52.0) Mean Corpuscular Volume 89 FL (80-99) Mean Corpuscular Hemoglobin 29.2 PG (27.0-31.0) Mean Corpuscular Hemoglobin Concent 33.0 G/DL (32.0-36.0) Red Cell Distribution Width 12.4 % (11.6-14.8) Platelet Count 324 K/UL (150-450) Mean Platelet Volume 9.5 FL (6.5-10.1) Neutrophils (%) (Auto) 83.5 % (45.0-75.0) H Lymphocytes (%) (Auto) 13.0 % (20.0-45.0) L Monocytes (%) (Auto) 3.0 % (1.0-10.0) Eosinophils (%) (Auto) 0.1 % (0.0-3.0) Basophils (%) (Auto) 0.4 % (0.0-2.0) Urine Color Pale yellow Urine Appearance Clear Urine pH 5 (4.5-8.0) Urine Specific [place] 1.025 (1.005-1.035) Urine Protein 2+ (NEGATIVE) H Urine Glucose (UA) Negative (NEGATIVE) Urine Ketones Negative (NEGATIVE) Urine Blood 4+ (NEGATIVE) H Urine Nitrite Negative (NEGATIVE) Urine Bilirubin Negative (NEGATIVE) Urine Urobilinogen Normal MG/DL (0.0-1.0) Urine Leukocyte Esterase 1+ (NEGATIVE) H Urine RBC 2-4 /HPF (0 - 0) H Urine WBC 5-10 /HPF (0 - 0) H Urine Squamous Epithelial Cells Occasional /LPF Urine Bacteria Occasional /HPF (NONE) Sodium Level 138 MMOL/L (136-145) Potassium Level 4.0 MMOL/L (3.5-5.1) Chloride Level 102 MMOL/L (98-107) Carbon Dioxide Level 19 MMOL/L (21-32) L Anion Gap 17 mmol/L (5-15) H Blood Urea Nitrogen 16 mg/dL (7-18) Creatinine 1.1 MG/DL (0.55-1.30) Estimated Glomerular Filtration Rate > 60 mL/min (>60) Glucose Level 144 MG/DL (74-106) H Calcium Level 9.3 MG/DL (8.5-10.1) Total Bilirubin 0.3 MG/DL (0.2-1.0) Aspartate Amino Transferase (AST) 42 U/L (15-37) H Alanine Aminotransferase (ALT) 159 U/L (12-78) H Alkaline Phosphatase 104 U/L (46-116) Total Protein 8.8 G/DL (6.4-8.2) H Albumin 4.6 G/DL (3.4-5.0) Globulin 4.2 g/dL Albumin/Globulin Ratio 1.1 (1.0-2.7) Lipase 105 U/L (73-393) Urine Opiates Screen Negative (NEGATIVE) Urine Barbiturates Screen Negative (NEGATIVE) Phencyclidine (PCP) Screen Negative (NEGATIVE) Urine Amphetamines Screen Negative (NEGATIVE) Urine Benzodiazepines Screen Negative (NEGATIVE) Urine Cocaine Screen Negative (NEGATIVE) Urine Marijuana (THC) Screen Positive (NEGATIVE) H Last Vital Signs Date Time Temp Pulse Resp B/P (MAP) Pulse Ox O2 Delivery O2 Flow Rate FiO2 08/05/20 10:41 96.6 78 19 157/100 (119) 98 Room Air Disposition: HOME, SELF-CARE Condition: Stable Scripts Ondansetron (Zofran) 4 Mg Tablet 4 MG ORAL Q6H PRN for Nausea & Vomiting, #15 TAB 0 Refills Prov: Kendrick Perdomo MD 08/05/20 Kendrick Perdomo MD Aug 05, 2020 11:08
[2020-08-05] MEDS: DiphenhydrAMINE 50mg/ml Inj IVP ONE (11:09)
[2020-08-05] MEDS: Lidocaine 2% Visc 15ml soln ORAL ONE (11:10)
[2020-08-05] MEDS: Mylanta II UD 30ml ORAL ONE (11:10)
[2020-08-05] MEDS: Dicyclomine HCl 10mg/5ml oral soln ORAL ONE (11:10)
[2020-08-05 11:12] LABS: APPEARANCE,URINE CLEAR; BILIRUBIN, URINE NEGATIVE (NEGATIVE); COLOR,URINE PALE YELLOW; GLUCOSE, URINE (UA) NEGATIVE (NEGATIVE); KETONES,URINE NEGATIVE (NEGATIVE); LEUKOCYTE ESTERASE ,URINE 1+ (NEGATIVE); NITRITE,URINE NEGATIVE (NEGATIVE); PH,URINE 5 (4.5-8.0); PROTEIN,URINE 2+ (NEGATIVE); UROBILINOGEN,URINE NORMAL MG/DL (0.0-1.0)
[2020-08-05 11:13] LABS: BASOPHILS % (AUTO) 0.4 % (0.0-2.0); EOSINOPHILS % (AUTO) 0.1 % (0.0-3.0); HEMATOCRIT 47.1 % (42.0-52.0); HEMOGLOBIN 15.5 G/DL (14.2-18.0); MEAN CORPUSCULAR VOLUME 89 FL (80-99); NEUTROPHILS % (AUTO) 83.5 % (45.0-75.0); PLATELET COUNT 324 K/UL (150-450); RED BLOOD COUNT 5.32 M/UL (4.70-6.10); RED CELL DISTRIBUTION WIDTH 12.4 % (11.6-14.8); WHITE BLOOD COUNT 16.1 K/UL (4.8-10.8)
[2020-08-05 11:34] LABS: ALANINE AMINOTRANSFERASE 159 U/L (12-78); ALBUMIN 4.6 G/DL (3.4-5.0); ALBUMIN/GLOBULIN RATIO 1.1 (1.0-2.7); ALKALINE PHOSPHATASE 104 U/L (46-116); ANION GAP 17 mmol/L (5-15); ASPARTATE AMINO TRANSFERASE 42 U/L (15-37); BILIRUBIN,TOTAL 0.3 MG/DL (0.2-1.0); BLOOD UREA NITROGEN 16 mg/dL (7-18); CALCIUM 9.3 MG/DL (8.5-10.1); CARBON DIOXIDE 19 MMOL/L (21-32); CHLORIDE 102 MMOL/L (98-107); CREATININE 1.1 MG/DL (0.55-1.30); SODIUM 138 MMOL/L (136-145)
[2020-08-05] MEDS: Metoclopramide 10mg/2ml Inj IVP ONE (12:12)
[2020-08-05] MEDS ORDERED: ZOFRAN4 MG ORAL (12:26)
[2020-08-05] MEDS: Ketorolac 30mg Inj IV ONE (12:40)
[2020-08-05 12:45] VITALS: BP 157/100
== END 2020-08-05 12:45 | disposition home or self-care (01) ==
LOC: EMR 12:18
DX: R11.10 Vomiting, unspecified (principal); I10 Essential (primary) hypertension; F12.90 Cannabis use, unspecified, uncomplicated
CPT/HCPCS: 36415; 80053; 80307; 81003; 83690; 85025; 96361; 96374; 96375; J1200; J1885; J2405; J2765; J7030; S0028; Z7502; 99284

== ENCOUNTER 2020-08-09 10:31 | Emergency (ER) | payer MEDICAID ==
[~2020-08-09] VITALS: Ht 182.9 cm; Wt 136.1 kg
--- NOTE | 2020-08-09 10:31 | NUR ---
ED Nurse Note: Pt brought in by ambulance from home c/o n/v since Saturday. Pt was seen @ [facility] Saturday for same symptoms. Respirations even and unlabored on room air. Vitals stable as documented. A+Ox4, speaking in complete sentences.
--- NOTE | 2020-08-09 10:38 | Emergency Room Report ---
History of Present Illness General Chief Complaint: Vomiting Source: Patient Present Illness HPI Disclaimer: Please note that this report is being documented using [employer] technology. This can lead to erroneous entry secondary to incorrect interpretation by the dictating instrument. HPI: 29-year-old male history of gastritis returns to the emergency department complaining of abdominal pain. Seen in the emergency department several days ago with similar complaints. Epigastric discomfort after smoking marijuana. Labs are within normal limits on last visit. He has not been taking the Zofran that was prescribed to them. Continues to smoke marijuana. Denies diarrhea, fever, chills, chest pain, palpitation, shortness of breath or cough. PMH: Gastritis, cyclic vomiting syndrome, hypertension PSH: Reviewed Allergies: Denied Social Hx: THC use Allergies: Coded Allergies: No Known Allergies (Unverified , 10/17/16) COVID-19 Screening Contact w/high risk pt: No Recent Travel to affected area: No Experienced COVID-19 symptoms?: Yes Nursing Documentation-PMH Hx Hypertension: Yes Review of Systems All Other Systems: negative except mentioned in HPI Physical Exam Vital Signs Date Time Temp Pulse Resp B/P (MAP) Pulse Ox O2 Delivery O2 Flow Rate FiO2 08/09/20 10:24 98.6 110 20 150/90 (110) 100 Room Air General: Awake and alert, no acute distress HEENT: NC/AT. EOMI. Cardiovascular: Tachycardic. S1 and S2 normal. No murmur appreciated Resp: Normal work of breathing. No cough, wheezing or crackles appreciated Abdomen: Abdomen is soft, obese, nondistended. Tender to palpation in the ep igastrium. No guarding or rebound. Negative Nguyen's. Skin: Intact. No abrasions, laceration or rash over the exposed skin MSK: Normal tone and bulk. Moving all extremities. No obvious deformity. Neuro: Awake and alert. Mentating appropriately. Medical Decision Making Diagnostic Impression: Primary Impression: Abdominal pain ER Course 29-year-old male history of cyclic vomiting syndrome or gastritis secondary to THC use presents with persistent abdominal pain and vomiting. Patient has not been using the Zofran that was prescribed to him. Continues to smoke marijuana. Labs have again returned within normal limits. Patient was also given Reglan and capsaicin cream applied to his abdomen for treatment of cyclic vomiting syndrome. Symptoms are now resolved. Again counseled him to stop smoking mar ijuana and to take his medications as prescribed. Again referred to outpatient clinic. Laboratory Tests Test 08/09/20 10:40 White Blood Count 13.2 K/UL (4.8-10.8) H Red Blood Count 5.29 M/UL (4.70-6.10) Hemoglobin 15.0 G/DL (14.2-18.0) Hematocrit 46.3 % (42.0-52.0) Mean Corpuscular Volume 87 FL (80-99) Mean Corpuscular Hemoglobin 28.3 PG (27.0-31.0) Mean Corpuscular Hemoglobin Concent 32.3 G/DL (32.0-36.0) Red Cell Distribution Width 12.5 % (11.6-14.8) Platelet Count 316 K/UL (150-450) Mean Platelet Volume 9.5 FL (6.5-10.1) Neutrophils (%) (Auto) % (45.0-75.0) Lymphocytes (%) (Auto) % (20.0-45.0) Monocytes (%) (Auto) % (1.0-10.0) Eosinophils (%) (Auto) % (0.0-3.0) Basophils (%) (Auto) % (0.0-2.0) Differential Total Cells Counted 100 Neutrophils % (Manual) 94 % (45-75) H Lymphocytes % (Manual) 4 % (20-45) L Monocytes % (Manual) 2 % (1-10) Eosinophils % (Manual) 0 % (0-3) Basophils % (Manual) 0 % (0-2) Band Neutrophils 0 % (0-8) Platelet Estimate Adequate Platelet Morphology Normal Red Blood Cell Morphology Normal Sodium Level 139 MMOL/L (136-145) Potassium Level 3.6 MMOL/L (3.5-5.1) Chloride Level 104 MMOL/L (98-107) Carbon Dioxide Level 23 MMOL/L (21-32) Anion Gap 12 mmol/L (5-15) Blood Urea Nitrogen 12 mg/dL (7-18) Creatinine 1.1 MG/DL (0.55-1.30) Estimated Glomerular Filtration Rate > 60 mL/min (>60) Glucose Level 136 MG/DL (74-106) H Calcium Level 9.3 MG/DL (8.5-10.1) Total Bilirubin 0.4 MG/DL (0.2-1.0) Aspartate Amino Transferase (AST) 51 U/L (15-37) H Alanine Aminotransferase (ALT) 168 U/L (12-78) H Alkaline Phosphatase 98 U/L (46-116) Total Protein 8.3 G/DL (6.4-8.2) H Albumin 4.3 G/DL (3.4-5.0) Globulin 4.0 g/dL Albumin/Globulin Ratio 1.1 (1.0-2.7) Lipase 97 U/L (73-393) Last Vital Signs Date Time Temp Pulse Resp B/P (MAP) Pulse Ox O2 Delivery O2 Flow Rate FiO2 08/09/20 10:24 98.6 110 20 150/90 (110) 100 Room Air Disposition: HOME, SELF-CARE Condition: Stable Scripts Famotidine* (Pepcid 20mg tablet*) 20 Mg Tablet 20 MG ORAL DAILY for Gerd, #30 TAB 0 Refills Prov: Kendrick Perdomo MD 08/09/20 Ondansetron (Zofran) 4 Mg Tablet 4 MG ORAL Q6H PRN for Nausea & Vomiting, #15 TAB 0 Refills Prov: Kendrick Perdomo MD 08/09/20 Kendrick Perdomo MD Aug 09, 2020 10:38
[2020-08-09 10:40] VITALS: BP 155/87
[2020-08-09] MEDS ORDERED: Dicyclomine HCl 10mg/5ml oral soln ORAL ONE (10:45)
[2020-08-09] MEDS ORDERED: Lidocaine 2% Visc 15ml soln ORAL ONE (10:45)
[2020-08-09] MEDS ORDERED: Mylanta II UD 30ml ORAL ONE (10:45)
[2020-08-09 11:20] LABS: HEMATOCRIT 46.3 % (42.0-52.0); MEAN CORPUSCULAR VOLUME 87 FL (80-99); PLATELET COUNT 316 K/UL (150-450); RED BLOOD COUNT 5.29 M/UL (4.70-6.10); RED CELL DISTRIBUTION WIDTH 12.5 % (11.6-14.8); WHITE BLOOD COUNT 13.2 K/UL (4.8-10.8)
[2020-08-09 11:32] LABS: ANION GAP 12 mmol/L (5-15); BLOOD UREA NITROGEN 12 mg/dL (7-18); CALCIUM 9.3 MG/DL (8.5-10.1); CARBON DIOXIDE 23 MMOL/L (21-32); CHLORIDE 104 MMOL/L (98-107); CREATININE 1.1 MG/DL (0.55-1.30); POTASSIUM 3.6 MMOL/L (3.5-5.1); SODIUM 139 MMOL/L (136-145)
[2020-08-09 11:37] LABS: ALANINE AMINOTRANSFERASE 168 U/L (12-78); ALBUMIN 4.3 G/DL (3.4-5.0); ALBUMIN/GLOBULIN RATIO 1.1 (1.0-2.7); ALKALINE PHOSPHATASE 98 U/L (46-116); ASPARTATE AMINO TRANSFERASE 51 U/L (15-37); BILIRUBIN,TOTAL 0.4 MG/DL (0.2-1.0)
[2020-08-09] MEDS ORDERED: ZOFRAN4 MG ORAL ×3 (11:41→12:49)
[2020-08-09] MEDS ORDERED: FAMOTIDINE20 MG ORAL ×3 (11:41→12:49)
[2020-08-09] MEDS ORDERED: Metoclopramide 10mg/2ml Inj IVP ONE (11:45)
[2020-08-09] MEDS ORDERED: Capsaicin 0.075% Cream TOPIC ONE ×2 (11:48→13:00)
[2020-08-09 12:55] VITALS: BP 147/82
== END 2020-08-09 12:55 | disposition home or self-care (01) ==
LOC: EDBD 10:31 → EMR 11:20
DX: R10.13 Epigastric pain (principal); F12.90 Cannabis use, unspecified, uncomplicated; I10 Essential (primary) hypertension
CPT/HCPCS: 36415; 80053; 83690; 85007; 85025; 96361; 96374; 96375; J2405; J2765; J7030; S0028; Z7502; 99284

== ENCOUNTER 2020-09-19 16:43 | Emergency (ER) | payer MEDICAID ==
[~2020-09-19] VITALS: Ht 175.3 cm; Wt 122.5 kg
[~2020-09-19 16:43] MED LIST changes: +FAMOTIDINE20 MG ORAL
--- NOTE | 2020-09-19 16:43 | NUR ---
Patient presents to the ER with c/o nausea and intermittent vomitting over the the last couple days. He smokes marijauna but last smoked 1 1/2 months ago. No fever, chills or diarrhea. He has no significant past medical history. AAOX4. Independently ambulatory.
[2020-09-19 16:57] VITALS: BP 147/91
[2020-09-19] MEDS ORDERED: Capsaicin 0.075% Cream TOPIC ONE (17:15)
[2020-09-19] MEDS ORDERED: Metoclopramide 10mg/2ml Inj IM ONE (17:15)
--- NOTE | 2020-09-19 17:35 | Emergency Room Report ---
History of Present Illness General Chief Complaint: Vomiting Source: Patient Present Illness HPI 30-year-old male presents to the emergency department complaining of persistent nausea and vomiting x1 day in addition to 6/10 in severity epigastric abdominal burning sensation. Patient reports smoking history but states he did not smoke any marijuana today. Patient does report history of vomiting reaction in the past to marijuana which presented in a similar fashion. He denies blood in the vomitus he denies constipation, diarrhea or abdominal tenderness. Patient does report feeling as though acid is coming up his throat. He denies fevers or chills. He denies any ill contacts with similar symptoms. He denies dizziness, headache, recent head injury, neck pain/stiffness. He denies chest pain or palpitations. Patient reports inability to keep down any fluids or solids at this time. No other aggravating or relieving factors. Denies significant past medical history. He reports intermittent ETOH use socially. Denies tobacco use. 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 Patient History Past Medical History: see triage record Past Surgical History: none Pertinent Family History: none Social History: Reports: smoking - THC, alcohol use, drug use - THC Reviewed Nursing Documentation: PMH: Agreed; PSxH: Agreed Nursing Documentation-PMH Past Medical History: No History, Except For Hx Hypertension: Yes Review of Systems All Other Systems: negative except mentioned in HPI Physical Exam Vital Signs Date Time Temp Pulse Resp B/P (MAP) Pulse Ox O2 Delivery O2 Flow Rate FiO2 09/19/20 16:57 98.1 68 16 147/91 (109) 96 Room Air Sp02 EP Interpretation: reviewed, normal General Appearance: no apparent distress, alert, GCS 15, non-toxic Head: normocephalic, atraumatic Eyes: bilateral eye normal inspection, bilateral eye PERRL ENT: hearing grossly normal, normal voice Neck: full range of motion Respiratory: chest non-tender, lungs clear, normal breath sounds, speaking full sentences Cardiovascular #1: regular rate, rhythm Gastrointestinal: normal bowel sounds, soft, non-distended, no guarding, no rebound, tenderness - Mid epigastric TTP. Genitourinary: normal inspection, no CVA tenderness Musculoskeletal: normal range of motion, gait/station normal, non-tender Neurologic: alert, motor strength/tone normal, oriented x3, sensory intact, responsive, speech normal Psychiatric: judgement/insight normal Skin: no rash, normal color Medical Decision Making PA Attestation Dr. Perdomo is my supervising Physician whom patient management has been discussed with. Diagnostic Impression: Primary Impression: Nausea and vomiting in adult ER Course 30-year-old male presents to the emergency department complaining of persistent nausea and vomiting x1 day in addition to 6/10 in severity epigastric abdominal burning sensation. Patient reports smoking history but states he did not smoke any marijuana today. Patient does report history of vomiting reaction in the p ast to marijuana which presented in a similar fashion. He denies blood in the vomitus he denies constipation, diarrhea or abdominal tenderness. Patient does report feeling as though acid is coming up his throat. He denies fevers or chills. He denies any ill contacts with similar symptoms. He denies dizziness, headache, recent head injury, neck pain/stiffness. He denies chest pain or palpitations. Patient reports inability to keep down any fluids or solids at this time. No other aggravating or relieving factors. Denies significant past medical history. He reports intermittent ETOH use socially. Denies tobacco use. Ddx considered but are not limited to GE, colitis, acute appendicitis, SBO, Cyclical Vomiting secondary to THC, COVID-19 Vital signs: pt. is afebrile. H&PE are most consistent with GE most likely viral in etiology, no evidence to suggest acute abdomen on physical exam. Patient is nontoxic in appearance in no acute distress not actively vomiting. ORDERS: -None required at this time, the dx is clinical. ED INTERVENTIONS: - Reglan IM - [place] Cream TP - GI Cocktail without Bentyl. -After above interventions this patient successfully completed oral fluid challenge without nausea or vomiting. Patient reports that his symptoms have resolved and feels well enough to return home with prescriptions of similar medications. Patient is instructed to return to the emergency department if he has worsening of his symptoms, inability to keep down his medications or new symptoms such as fevers, chills, blood in the vomitus, severe abdominal pain or any other new symptom that causes concern for him. Patient verbalizes understanding and agreement with this treatment plan. -I do not identify an emergent condition at this time. With current presentation, pt. is stable for close outpatient follow up and conservative treatment. DISCHARGE: At this time pt. is stable for d/c to home. Will provide printed patient care instructions, and any necessary prescriptions. Care plan and follow up instructions have been discussed with the patient prior to discharge. Last Vital Signs Date Time Temp Pulse Resp B/P (MAP) Pulse Ox O2 Delivery O2 Flow Rate FiO2 09/19/20 16:57 98.1 68 16 147/91 (109) 96 Room Air Status: improved Disposition: HOME, SELF-CARE Condition: Stable Scripts Ondansetron Odt* (ZOFRAN ODT*) 4 Mg Tab.rapdis 4 MG BC EVERY 6 HOURS PRN for Nausea & Vomiting, #10 TAB 0 Refills Prov: Jane Cook 09/19/20 Mag Hydrox/Aluminum Hyd/Simeth (Mylanta Maximum Strength Liq) 355 Ml Oral.susp 30 ML PO BID, #355 ML Prov: Jane Cook 09/19/20 Famotidine* (Pepcid 20mg tablet*) 20 Mg Tablet 20 MG ORAL TWICE A DAY for Gerd for 10 Days, #20 TAB 0 Refills Prov: Jane Cook 09/19/20 Referrals: Yara Lester. [facility] Patient Instructions: Nausea and Vomiting, Adult Additional Instructions: Take medications as directed. Follow up with a Primary Care Provider in 3-5 days, even if your symptoms have resolved. --Please review list of primary care clinics, if you do not already have a primary care provider Return sooner to ED if new symptoms occur, or current symptoms become worse. - Please note that this Emergency Department Report was dictated using [employer] resource assessor technology software, occasionally this can lead to erroneous entry secondary to interpretation by the dictation equipment. Jane Cook Sep 19, 2020 17:35
[2020-09-19] MEDS ORDERED: Mylanta II UD 30ml ORAL ONE (17:45)
[2020-09-19] MEDS ORDERED: Lidocaine 2% Visc 15ml soln ORAL ONE (17:45)
[2020-09-19] MEDS ORDERED: FAMOTIDINE20 MG ORAL (18:45)
[2020-09-19] MEDS ORDERED: MYLANTA MAXIMU355 ML PO (18:45)
[2020-09-19] MEDS ORDERED: ONDANSETRON ODT4 MG BC (18:45)
[2020-09-20] MEDS ORDERED: FAMOTIDINE20 MG ORAL (05:03)
[2020-09-20] MEDS ORDERED: CAPSAICIN42.5 GM TP (05:03)
[2020-09-20] MEDS ORDERED: ZOFRAN4 MG ORAL (05:03)
== END 2020-09-19 19:33 | disposition home or self-care (01) ==
LOC: EMR 19:03
DX: R11.2 Nausea with vomiting, unspecified (principal); I10 Essential (primary) hypertension; Z87.891 Personal history of nicotine dependence; F17.200 Nicotine dependence, unspecified, uncomplicated
CPT/HCPCS: 96372; J2765; Z7502; 99283

== ENCOUNTER 2020-09-20 02:36 | Emergency (ER) | payer MEDICAID ==
[~2020-09-20] VITALS: Ht 175.3 cm; Wt 122.5 kg
[~2020-09-20 02:36] MED LIST changes: +MYLANTA MAXIMU355 ML PO; +ONDANSETRON ODT4 MG BC
[2020-09-20 03:29] VITALS: BP 138/85
--- NOTE | 2020-09-20 03:58 | Emergency Room Report ---
History of Present Illness General Chief Complaint: Vomiting Source: Patient Present Illness HPI Is a 30-year-old male presents for increased abdominal discomfort and vomiting. Gradual onset symptoms. Denies any fever. Denies any recent cough. No diarrhea. No hematemesis. Prior similar episodes in the past. Denies any recent marijuana use. Reports having onset of symptoms 3 days ago. 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 Patient History Past Medical History: see triage record Reviewed Nursing Documentation: PMH: Agreed; PSxH: Agreed Nursing Documentation-PMH Hx Hypertension: Yes Review of Systems All Other Systems: negative except mentioned in HPI Physical Exam Vital Signs Date Time Temp Pulse Resp B/P (MAP) Pulse Ox O2 Delivery O2 Flow Rate FiO2 09/20/20 02:50 98.6 90 20 138/85 (102) 98 09/20/20 03:29 Room Air Sp02 EP Interpretation: reviewed, normal General Appearance: normal inspection, well appearing, no apparent distress, alert, GCS 15, non-toxic Head: atraumatic ENT: normal ENT inspection, hearing grossly normal, normal voice Neck: normal inspection, full range of motion, supple, no bony tend Respiratory: normal inspection, lungs clear, normal breath sounds, no respiratory distress, no retraction, no wheezing Cardiovascular #1: regular rate, rhythm, no edema Gastrointestinal: normal inspection, normal bowel sounds, non tender, soft, no guarding, no hernia Genitourinary: no CVA tenderness Musculoskeletal: normal inspection, back normal, normal range of motion Neurologic: alert, motor strength/tone normal, 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
[2020-09-20] MEDS ORDERED: Haloperidol Lactate 5 MG in D5W 55 ML IVPB ONE (04:00)
[2020-09-20 04:30] LABS: APPEARANCE,URINE CLEAR; BILIRUBIN, URINE NEGATIVE (NEGATIVE); COLOR,URINE PALE YELLOW; GLUCOSE, URINE (UA) NEGATIVE (NEGATIVE); KETONES,URINE NEGATIVE (NEGATIVE); LEUKOCYTE ESTERASE ,URINE NEGATIVE (NEGATIVE); NITRITE,URINE NEGATIVE (NEGATIVE); PH,URINE 6 (4.5-8.0); PROTEIN,URINE 1+ (NEGATIVE); UROBILINOGEN,URINE NORMAL MG/DL (0.0-1.0)
[2020-09-20 04:39] LABS: HEMATOCRIT 43.4 % (42.0-52.0); MEAN CORPUSCULAR VOLUME 85 FL (80-99); PLATELET COUNT 300 K/UL (150-450); RED BLOOD COUNT 5.11 M/UL (4.70-6.10); RED CELL DISTRIBUTION WIDTH 12.7 % (11.6-14.8); WHITE BLOOD COUNT 16.5 K/UL (4.8-10.8)
[2020-09-20 04:40] LABS: ANION GAP 12 mmol/L (5-15); BLOOD UREA NITROGEN 14 mg/dL (7-18); CALCIUM 9.6 MG/DL (8.5-10.1); CARBON DIOXIDE 26 MMOL/L (21-32); CHLORIDE 102 MMOL/L (98-107); CREATININE 1.3 MG/DL (0.55-1.30); POTASSIUM 3.4 MMOL/L (3.5-5.1); SODIUM 140 MMOL/L (136-145)
[2020-09-20 04:55] LABS: ALANINE AMINOTRANSFERASE 87 U/L (12-78); ALBUMIN 4.4 G/DL (3.4-5.0); ALBUMIN/GLOBULIN RATIO 1.1 (1.0-2.7); ALKALINE PHOSPHATASE 89 U/L (46-116); ASPARTATE AMINO TRANSFERASE 23 U/L (15-37); BILIRUBIN,TOTAL 0.5 MG/DL (0.2-1.0)
[2020-09-20] MEDS ORDERED: ZOFRAN4 MG ORAL (05:03)
[2020-09-20] MEDS ORDERED: FAMOTIDINE20 MG ORAL (05:03)
[2020-09-20] MEDS ORDERED: CAPSAICIN42.5 GM TP (05:03)
[2020-09-20] MEDS ORDERED: Mylanta II UD 30ml ONE (05:07)
[2020-09-20 05:09] VITALS: BP 136/78
[2020-09-20 05:50] VITALS: BP 126/80
== END 2020-09-20 05:50 | disposition home or self-care (01) ==
LOC: EMR 02:50
DX: R11.15 Cyclical vomiting syndrome unrelated to migraine (principal)
CPT/HCPCS: 36415; 80053; 81003; 83690; 85025; 96361; 96374; J1630; J7030; Z7502; 99284; J8499